=== PATIENT | female | born 1960 | race African-American/Black ===

== ENCOUNTER 2017-04-10 17:52 | Emergency (ER) | payer MEDICARE, OTHER | END 2017-04-10 20:00 | disposition EXP | LOC: FER 17:52 | DX: I46.9 Cardiac arrest, cause unspecified (principal); I12.9 Hypertensive chronic kidney disease with stage 1 through stage 4 chronic kidney disease, or unspecified chronic kidney disease; N18.9 Chronic kidney disease, unspecified; Z79.899 Other long term (current) drug therapy; Z95.1 Presence of aortocoronary bypass graft; Z99.2 Dependence on renal dialysis | CPT/HCPCS: 31500; 92950; 94770; 99285; J0282 ==